=== PATIENT | male | born 1970 | race Caucasian/White ===

== ENCOUNTER 2017-01-02 23:29 | Emergency (ER) | payer MEDICAID ==
[~2017-01-02] VITALS: Ht 172.7 cm; Wt 81.2 kg
[2017-01-03 00:46] VITALS: BP 142/88
== END 2017-01-03 00:46 | disposition home or self-care (01) ==
LOC: ED 23:29
DX: N48.1 Balanitis (principal)
CPT/HCPCS: 87491; 87591